=== PATIENT | female | born 1965 | race American Indian/Alaskan Native ===

== ENCOUNTER 2019-11-01 06:09 | Day surgery (SDC) | payer BC, OTHER ==
[2019-11-01] MEDS ORDERED: SODIUM CHLORIDE 0.9% 500 ML 500 ML IV SCH (07:00)
[2019-11-01 07:08] LABS: Basophils # (Auto) 0.1 K/mm3 (0.0-0.1); Basophils % (Auto) 0.6 % (0.0-1.8); Eosinophils # (Auto) 0.3 K/mm3 (0.0-0.4); Eosinophils % (Auto) 1.9 % (0.0-4.3); Hematocrit 32.1 % (30.3-42.9); Hemoglobin 10.7 gm/dl (10.1-14.3); Lymphocytes # (Auto) 4.2 K/mm3 (1.2-5.4); Lymphocytes % (Auto) 28.7 % (13.4-35.0); Mean Corpuscular HGB Conc 33 % (30-34); Mean Corpuscular Volume 74 fl (79-97); Monocytes # (Auto) 0.9 K/mm3 (0.0-0.8); Monocytes % (Auto) 5.8 % (0.0-7.3); Platelet Count 432 K/mm3 (140-440); Red Blood Count 4.35 M/mm3 (3.65-5.03); Red Cell Distribution Width 18.3 % (13.2-15.2)
[2019-11-01 07:19] LABS: INR 1.03 (0.87-1.13)
[2019-11-01 07:20] LABS: Partial Thromboplastin Time 27.4 Sec. (24.2-36.6)
[2019-11-01 07:22] LABS: BUN/Creatinine Ratio 23; Blood Urea Nitrogen 21 mg/dL (7-17); Calcium 10.2 mg/dL (8.4-10.2); Hemolysis Index 0
[2019-11-01] MEDS ORDERED: HEPARIN/NS 5000 UNIT/500ML 1,000 ML IR ONE (07:47)
[2019-11-01] MEDS ORDERED: HEPARIN 10,000 UNITS/10 ML VIAL ONE (07:47)
[2019-11-01] MEDS ORDERED: NITROGLYCERIN SYRINGE 3 ML ONE ×2 (07:48→09:20)
[2019-11-01] MEDS: fentaNYL 100 MCG/2 ML INJ ONE ×5 (08:41→09:17)
[2019-11-01] MEDS: LIDOCAINE (2%) 20 MG/1 ML VIAL 20 ML MDV INFILTRATI ONE ×2 (08:41→09:03)
[2019-11-01] MEDS: MIDAZOLAM 2 MG/2 ML INJ ONE ×5 (08:41→09:17)
[2019-11-01] MEDS: VERAPAMIL 5 MG/2 ML INJ ONE ×3 (08:42→09:06)
--- NOTE | 2019-11-01 09:56 | Cardiac Catherization Report ---
INDICATION FOR PROCEDURE: A 54-year-old -Portuguese female with history of morbid obesity, diabetes mellitus, history of radiofrequency ablation for SVT in 2013, was having atypical chest pains with underlying fibromyalgia. She was noted to have abnormal stress nuclear imaging with reversible apical defect. Hence, scheduled for cardiac catheterization for definitive diagnosis and treatment. The patient is aware of the procedure, potential complications and alternatives of therapy available. DESCRIPTION OF PROCEDURE: The patient was brought to the catheterization laboratory in a fasting condition, was evaluated for appropriateness for moderate sedation and she was felt to be appropriate candidate for moderate sedation and received IV Versed and fentanyl. Subsequently, the patient was prepared in standard fashion. Sterile drapes were applied. Local anesthesia was given in the right wrist area and right radial artery puncture was made using 21-gauge arterial puncture needle. A 5-[place] slender sheath was introduced. The patient has very significant pain in the right radial artery during manipulation of the catheter, requiring multiple doses of anxiolytics including Versed and pain medication, fentanyl. Also, was given 400 mcg of intra-arterial nitroglycerin in addition to intra-arterial verapamil. Using 5-[place] JL3.5 catheter, angiograms of the left coronary artery were obtained and using JR4 catheter, right coronary angiography was performed in multiple views followed by advancing the right coronary catheter into the LV and obtaining left ventriculogram done in SCHULZ projection using hand injection and pressures were measured. At the end of the procedure, catheter and sheaths were removed. It is to be noted the patient has significant radial spasm requiring multiple doses of anxiolytics and pain medication. The patient was monitored throughout the procedure with pulse oximetry and EKG in addition to hemodynamic monitoring. The patient tolerated the moderate sedation well. At the end of the procedure, the patient is alert, oriented x 3, communicating normally and breathing normally with no focal deficits. The patient's moderate sedation started at 8:51 a.m. and monitoring ended at 9:23 a.m. The patient was transferred to the outpatient area in stable condition. Following findings were noted. HEMODYNAMICS: 1. Opening aortic pressure 113/70. Left ventricular pressure 110/19. No gradient across the aortic valve. Estimated ejection fraction 65%. 2. Left ventriculogram done in SCHULZ projection showed normal sized left ventricle with normal contractility. Mitral regurgitation could not be evaluated because of limited amount of dye injected. 3. Right coronary artery dominant vessel arises normally from right coronary cusp. Angiographically smooth and normal. 4. Left coronary artery arises normally from left coronary cusp. Left main is very short, immediately dividing into LAD and circumflex branches. LAD and its branches and circumflex artery and its branch are angiographically smooth and normal. FINAL IMPRESSION: 1. Normal sized left ventricle with normal contractility. End-diastolic pressure mildly elevated at 19 mmHg. Mitral regurgitation was not evaluated because of limited amount of dye injected. 2. Essentially normal coronary anatomy. 3. At this time, etiology of her chest pain is not clear. The patient to be continued on risk factor modification. Procedure is uncomplicated. JOB# [id number] ROSALIO/ARACELY
--- NOTE | 2019-11-01 13:09 | Short Stay Summary ---
Short Stay Documentation Date of service: 11/01/19 - History H&P: obtained from office - Allergies and Medications Current Medications: Allergies morphine Adverse Reaction (Verified 11/01/19 06:47) Unknown tachycardia and palpitations Home Medications Medication Instructions Recorded Confirmed Last Taken Type Aspirin [Adult Aspirin] 81 mg PO DAILY 11/01/19 11/01/19 11/01/19 05:00 History AtorvaSTATin [Lipitor] 10 mg PO DAILY 11/01/19 11/01/19 11/01/19 05:00 History Ibuprofen [Motrin] 800 mg PO Q8HR PRN 11/01/19 11/01/19 11/01/19 05:00 History Insulin Aspart (Nf) [NovoLOG 7 units SQ BID 11/01/19 11/01/19 10/31/19 History Flexpen] Insulin Glargine,Hum.rec.anlog 75 unit SQ HS 11/01/19 11/01/19 10/31/19 History [Basaglar Kwikpen U-100] Metoprolol [Lopressor TAB] 50 mg PO DAILY 11/01/19 11/01/19 10/31/19 History NovoLOG Flexpen 12 units SQ DAILY 11/01/19 11/01/19 10/31/19 History Olmesartan-Hctz 40-25 mg Tab 1 tab PO DAILY 11/01/19 11/01/19 11/01/19 05:00 History Pantoprazole [Protonix] 40 mg PO QDAY 11/01/19 11/01/19 11/01/19 05:00 History Spironolactone [Aldactone] 25 mg PO QDAY 11/01/19 11/01/19 11/01/19 05:00 History traMADoL [Ultram] 50 mg PO TID 11/01/19 11/01/19 11/01/19 05:00 History Active Medications Sodium Chloride (Nacl 0.9% 500 Ml) 500 mls @ 50 mls/hr IV DIRECT ZOYA Stop: 11/01/19 16:59 Last Admin: 11/01/19 07:45 Dose: 50 mls/hr Documented by: - Brief post op/procedure progress note Date of procedure: 11/01/19 Pre-op diagnosis: abnormal stress test Post-op diagnosis: same Procedure: LHC - see dictated cath report Anesthesia: local Estimated blood loss: none Condition: stable - Disposition Condition at discharge: Good Disposition: [id number] TO HOME OR SELFCARE - Discharge Diagnoses (1) Normal coronary angiogram Status: Chronic (2) History of radiofrequency ablation (RFA) procedure for cardiac arrhythmia Status: Chronic (3) Fibromyalgia Status: Chronic (4) Diabetes Status: Chronic Short Stay Discharge Plan Activity: advance as tolerated Diet: diabetic Wound: open to air, keep clean and dry, per your surgeon's advice Follow up with: MIHAI ALONZO MD [Staff Physician] - 7 Days YUDITH KANG MD [Primary Care Provider] - 7 Days Forms: CardCath PCI D/C Instructions
[2019-11-01 13:33] VITALS: BP 117/62
== END 2019-11-01 13:34 | disposition home or self-care (01) ==
LOC: CATH 06:09
PROVIDERS: ATTEND Internal Medicine
DX: R94.39 Abnormal result of other cardiovascular function study (principal); E11.9 Type 2 diabetes mellitus without complications; I10 Essential (primary) hypertension; M79.7 Fibromyalgia; E78.00 Pure hypercholesterolemia, unspecified; J45.909 Unspecified asthma, uncomplicated; K21.9 Gastro-esophageal reflux disease without esophagitis; M19.90 Unspecified osteoarthritis, unspecified site; E66.01 Morbid (severe) obesity due to excess calories; Z88.5 Allergy status to narcotic agent; Z79.899 Other long term (current) drug therapy; Z79.82 Long term (current) use of aspirin; Z79.4 Long term (current) use of insulin; Z98.890 Other specified postprocedural states; Z68.42 Body mass index [BMI] 45.0-49.9, adult
CPT/HCPCS: 36415; 80048; 82962; 85025; 85610; 85730; 93005; 93458; 99156; 99157; C1894; J1644; J2250; J3010; J7040; Q9967